=== PATIENT | male | born 1975 | race Caucasian/White ===

== ENCOUNTER 2019-05-05 10:45 | Observation (INO) | payer OTHER, SELFPAY ==
[2019-05-05] VITALS (8 sets, daily range): BP systolic 126–163; BP diastolic 76–107; PULSE 58–74; RESP 16–18; TEMP 36.6–36.9; O2SAT 96–100; BMI 30.5; BMI 32.1
--- NOTE | 2019-05-05 10:47 | NURSING ---
NO OLD EKGS
--- NOTE | 2019-05-05 10:51 | ED.RN ---
PT WITH CP/ARIADNE. PT TO ROOM 7. TRIAGE COMPLETED
--- NOTE | 2019-05-05 10:57 | EKG12_ITS ---
Test Reason : CP Blood Pressure : / mmHG Vent. Rate : 061 BPM Atrial Rate : 061 BPM P-R Int : 166 ms QRS Dur : 102 ms QT Int : 414 ms P-R-T Axes : 005 -05 011 degrees QTc Int : 416 ms Normal sinus rhythm Inferior infarct , age undetermined Abnormal ECG Confirmed by AARON GASPAR, JAN ([id number]), art editor CYNTHIA WEST ([id number]) on 05/08/2019 11:52:04 AM Referred By: Joshua Tenorio Confirmed By:JAN WALKER MD
--- NOTE | 2019-05-05 11:11 | EKG12_ITS ---
Test Reason : CP ADMISSION Blood Pressure : / mmHG Vent. Rate : 060 BPM Atrial Rate : 060 BPM P-R Int : 164 ms QRS Dur : 098 ms QT Int : 416 ms P-R-T Axes : 006 -05 003 degrees QTc Int : 416 ms Normal sinus rhythm Inferior infarct , age undetermined Abnormal ECG No previous ECGs available Confirmed by AARON GASPAR, JAN ([id number]), magazine editor CYNTHIA WEST ([id number]) on 05/06/2019 8:04:55 AM Referred By: Joshua Tenorio Confirmed By:JAN WALKER MD
--- NOTE | 2019-05-05 11:11 | RAD_ITS ---
STUDY: X-RAY CHEST REASON FOR EXAM: Male, 44 years old. Chest tightness TECHNIQUE: Single AP portable view of the chest. COMPARISON: None. FINDINGS: The lungs are clear and expanded. There is no demonstrated pleural abnormality. There is mild cardiac enlargement probable left ventricular hypertrophy. Peripheral to the left cardiac border there is a focus of focal density which may represent prominent cardiac fat pad possible ventricular aneurysm or left lingular infiltrate. Normal mediastinum and maria isabel. Normal visualized pulmonary arteries. Normal visualized aortic arch and descending thoracic aorta. Normal visualized thoracic spine. Normal visualized ribs, clavicles, and shoulders. There is no demonstrated abnormality of the visualized soft tissue structures of the upper abdomen. RAD/Chest 1 View (Portable) IMPRESSION: There is mild cardiac enlargement probable left ventricular hypertrophy. Peripheral to the left cardiac border there is a focus of focal density which may represent prominent cardiac fat pad possible ventricular aneurysm or left lingular infiltrate. Electronically Signed: Cherelle Dobson MD at 11:33 EST Tel , Service support ,
[2019-05-05 11:18] LABS: Absolute Lymphocyte Count 2.59 X10^3/uL (0.83-4.51); Absolute Neutrophil Count 3.1 X10^3/uL (2.0-7.7); Basophil# 0.06 X10^3/uL; Basophil% 0.9 % (0-1); Eosinophil# 0.31 X10^3/uL; Eosinophils% 4.6 % (0-5); Hematocrit 47.1 % (40-54); Hemoglobin 15.8 g/dL (13.0-16.5); Lymphocyte # 2.59 X10^3/ul (4.0); Lymphocyte % 38.5 % (19-41); Mean Corp Hgb Conc 33.5 g/dL (32-36); Mean Corpuscular Volume 89.5 fL (80-94); Mean Platelet Vol. 9.5 fl (6.2-12.0); Monocyte# 0.66 X10^3/uL; Monocyte% 9.8 % (0-10); NRBC Flagged by Analyzer 0 % (0-5); Neutrophil # 3.09 X10^3/uL (2.7-7.7); Neutrophil % 45.9 % (47-70); Platelet Count 216 K/mm3 (150-450); RBC Distribution Width CV 12.8 % (11.6-14.6); RBC Distribution Width SD 42.3 fl (35.1-43.9); Red Blood Count 5.26 M/mm3 (4.6-6.2); White Blood Count 6.7 K/mm3 (4.4-11.0)
--- NOTE | 2019-05-05 11:19 | ED.DCSUM_ITS ---
- ER Visit Summary Date of Service: 05/05/19 Chief Complaint: Short of breath and midsternal chest pain History of Present Illness: The patient is a 44 M past medical history of hypertension. Non-smoker. No substantial family history of cardiac disease nor clotting disorder or blood clots. Patient states that he has had trouble breathing for the last several days. Made worse with exertion or walking steps. 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 Denies any radiation. No nausea. No diaphoresis. Physical Examination: Noise male no acute distress vital signs are stable afebrile. His blood pressure is elevated 163/102. His pulse ox is 90% on room air no signs of hypoxia. HEENT exam unremarkable. Neck nontender no JVD. Lungs clear to auscultation bilaterally. Heart regular rhythm no murmur. Chest wall nontender. Abdomen soft nontender. Normal bowel sounds no peritoneal signs. Patient is moving all 4 extremities. Calves are nontender without edema or cords. Radial pulses are equal and symmetrical. Back nontender. Neurologic exam normal. Test Results: EKG shows a sinus rhythm at a rate of 61 with no signs of acute OH or ischemia. Portable 1 view chest x-ray read by myself and radiologist shows no acute abnormality. CBC normal. Chemistries normal. Troponin normal. Emergency Department Course and Treatment: She with a concerning story for chest discomfort made worse with exertion and exertional dyspnea. He has minimal risk factors and no significant family history. Treated with aspirin and undergo cardiac work-up. Treatment Plan: Repeat exam patient is doing well at 1155. He and I discussed his exertional symptoms it is concerning even know he has limited risk factors and he will be admitted for chest pain of uncertain etiology. Stress testing in the morning. I very spoken to the hospitalist. Disposition: Admission Impression: Acute chest pain uncertain etiology This note was generated with [employer] dictation software. It may contain incorrect words, spelling, and punctuation that were not noted in review of the chart prior to signing ED Disposition - Plan for ED Patient: Referrals: Jonn White MD [STAFF PHYSICIAN] -
[2019-05-05] MEDS: Aspirin 81 MG TAB.CHEW 324 MG PO (11:24)
[2019-05-05 11:41] LABS: Anion Gap 5 (5-15); BUN 15 mg/dL (7-18); BUN/Creat Ratio 16.3 RATIO (10-20); Calcium,Total 9.2 mg/dL (8.5-10.1); Chloride 109 mmol/L (98-107); Creatinine, Serum 0.92 mg/dL (0.70-1.30); EST Glomerular Filtration Rate 95 mL/min (>60); Est Glom Filt Rate - Afr Amer 115 mL/min (>60); Glucose 93 mg/dL (74-106); Potassium 4.1 mmol/L (3.5-5.1); Sodium Level 141 mmol/L (136-145)
--- NOTE | 2019-05-05 12:04 | PCM.HP.STD ---
Problem List (1) Chest pain Status: Acute (2) Essential (primary) hypertension Status: Chronic (3) BMI greater than 30 Status: Chronic History of Present Illness Date of Admission: 05/05/19 Chief Complaint: Chest pain The patient is a 44 year old M with past medical history single for essential hypertension who presented with chest pain. Patient symptoms started 3 days prior to his admission. Pain was described as pressure located in the retrosternal region. He also did develop associated shortness of breath. On the morning of his presentation pain became more intense hence the decision to present to the ED. On further questioning patient denied any association with activity. Denied nausea no vomiting. In the ED his initial set of cardiac enzymes and EKG came back unremarkable he was however admitted for subsequent evaluation in the hospital. Past Medical History Past Medical History (Chronic Problems): Chronic Problems Essential (primary) hypertension (Chronic) BMI greater than 30 (Chronic) Allergies No Known Allergies Allergy (Verified 05/05/19 10:51) Home Medications: Ambulatory Orders Medication Instructions Recorded Lisinopril [Prinivil] 10 mg PO DAILY 05/05/19 Smoking Status: Never smoker - *Family History Paternal History Items: Cancer - Father of colorectal cancer Review of Systems Constitutional: Denies: Anorexia, Chills, Fever, Night Sweats, Weight Change HEENT: Denies: Head Aches, Sinus Congestion, Sinus Drainage Cardiovascular: Reports: Chest Pain. Denies: Orthopnea, Palpitations, Paroxysmal Noc. Dyspnea Respiratory: Reports: Shortness of Breath. Denies: Cough Gastrointestinal: Denies: Abdominal Pain, Hematemesis, Hematochezia, Nausea, Melena, Vomiting Genitourinary: Denies: Dysuria, Frequency, Hematuria, Urgency Musculoskeletal: Denies: Joint Pain, Joint Tenderness Skin: Denies: Rash Neurological: Denies: Focal weakness, Numbness, Tingling Psychiatric: Denies: Homicidal Ideations, Suicidal Ideations Hematologic/ Lymphatic: Denies: Easy Bruising, Easy Bleeding VTE Information - Inpt Only VTE Present on Admission: No VTE Mechan Device Prophylaxis: None VTE Pharm Prophylaxis ordered?: Yes Patient Problems: Active and Suspected Problems Chest pain (Acute) Objective: GENERAL: cooperative HEENT: Atraumatic; EYES; Anicteric, Normal Conjunctiva NECK; supple, normal thyroid, RESPIRATORY: Diminished to auscultation CARDIOVASCULAR: Regular S1 S2, GI: soft, normoactive bowel sounds, : No Renal angle tenderness; EXTREMITIES: No edema, no clubbing, MUSCULOSKELETAL: no muscle waisting NEURO: Awake; no lateralizing signs. SKIN: No Rash PSYCH; Flat affect - Physical Exam Vitals/I&O's: Vital Signs Temp Pulse Resp BP Pulse Ox 97.9 F 69 17 148/100 H 100 05/05/19 10:48 05/05/19 11:59 05/05/19 11:59 05/05/19 11:59 05/05/19 11:59 Oxygen Flow Rate (L/min) 2 Oxygen Delivery Method Nasal Cannula Weight: 88.451 kg Body Mass Index (BMI) 30.5 Laboratory Results 05/05/19 11:05: WBC 6.7, RBC 5.26, Hgb 15.8, Hct 47.1, MCV 89.5, MCH 30.0, MCHC 33.5, RDW Std Deviation 42.3, RDW Coeff of Arturo 12.8, Plt Count 216, MPV 9.5, Immature Gran % (Auto) 0.300, Neut % (Auto) 45.9 L, Lymph % (Auto) 38.5, [place] % (Auto) 9.8, Eos % (Auto) 4.6, Baso % (Auto) 0.9, Absolute Neuts (auto) 3.1, Absolute Lymphs (auto) 2.59, Nucleated RBC % 0 05/05/19 11:05: Sodium 141, Potassium 4.1, Chloride 109 H, Carbon Dioxide 27.0, Anion Gap 5, BUN 15, Creatinine 0.92, Estim Creat Clear Calc 94.80, Est GFR (MDRD) Af Amer 115, Est GFR (MDRD) Non-Af 95, BUN/Creatinine Ratio 16.3, Glucose 93, Calcium 9.2, Troponin I < 0.015 Assessment/Plan All Active Problems Chest pain (Acute) Patient is a 44-year-old gentleman who presented with chest pain 1. Chest Pain ~Placed on a monitored bed; rule out for Myocardial infarction with serial cardiac enzymes and EKGs. If negative, rule out Myocardial Ischemia with nuclear medicine stress test. 2. Hypertension ~ blood pressure not optimal due to noncompliance, patient was advised on the need to be compliant. Home medications continued with dose adjustment as needed 3. Obesity with BMI of 30.5 ?Weight loss advised 4. DVT prophylaxis ~ on enoxaparin Code Visit OBSV E&M: 66506 Initial observation care L3
[2019-05-05] MEDS: Lisinopril 10 MG Tablet PO (17:08)
[2019-05-05] MEDS: Enoxaparin 40 MG/0.4 ML Syringe SC (17:09)
[2019-05-06 03:48] VITALS: PULSE 59
[2019-05-06 05:00] VITALS: BP 114/83; PULSE 74; RESP 16; TEMP 36.6; O2SAT 97
[2019-05-06] MEDS: Lisinopril 10 MG Tablet PO (05:29)
[2019-05-06 06:44] VITALS: PULSE 61
[2019-05-06 07:37] LABS: Absolute Lymphocyte Count 2.05 X10^3/uL (0.83-4.51); Absolute Neutrophil Count 3.1 X10^3/uL (2.0-7.7); Basophil# 0.05 X10^3/uL; Basophil% 0.8 % (0-1); Eosinophils% 3.2 % (0-5); Hematocrit 46.6 % (40-54); Hemoglobin 15.6 g/dL (13.0-16.5); Lymphocyte # 2.05 X10^3/ul (4.0); Lymphocyte % 33.2 % (19-41); Mean Corp Hgb Conc 33.5 g/dL (32-36); Mean Corpuscular Volume 89.6 fL (80-94); Mean Platelet Vol. 9.5 fl (6.2-12.0); Monocyte# 0.75 X10^3/uL; Monocyte% 12.1 % (0-10); NRBC Flagged by Analyzer 0 % (0-5); Neutrophil # 3.11 X10^3/uL (2.7-7.7); Neutrophil % 50.4 % (47-70); Platelet Count 220 K/mm3 (150-450); RBC Distribution Width CV 12.7 % (11.6-14.6); RBC Distribution Width SD 41.6 fl (35.1-43.9); White Blood Count 6.2 K/mm3 (4.4-11.0)
[2019-05-06 08:18] LABS: Anion Gap 6 (5-15); BUN 17 mg/dL (7-18); BUN/Creat Ratio 18.7 RATIO (10-20); Calcium,Total 8.6 mg/dL (8.5-10.1); Chloride 107 mmol/L (98-107); Cholesterol 262 mg/dL (200); Creatinine, Serum 0.91 mg/dL (0.70-1.30); EST Glomerular Filtration Rate 96 mL/min (>60); Est Glom Filt Rate - Afr Amer 116 mL/min (>60); Estimated Creatinine Clearance 95.84 ml/min; Glucose 95 mg/dL (74-106); High Density Lipoprotein 50 mg/dL; Potassium 3.7 mmol/L (3.5-5.1); Sodium Level 139 mmol/L (136-145); Triglycerides 252 mg/dL; Very Low Density Lipoprotein 50 mg/dL (5-40)
[2019-05-06 10:31] VITALS: BP 114/73; PULSE 72; RESP 16; TEMP 36.8; O2SAT 96
--- NOTE | 2019-05-06 13:25 | STRESSREP ---
Stress Test Report Exercise myocardial perfusion stress test. 44-year-old man with a history of hypertension and chest pain. Stress protocol: Resting EKG demonstrates normal sinus rhythm with a rate of 70 bpm. Resting blood pressure is 122/90 mmHg. The patient exercised according to regular Ephraim protocol for total duration of 12 minutes. Patient completed stage IV of the Ephraim protocol. The maximum heart rate attained was 176 bpm which was 100% maximum predicted heart rate the maximum workload was 13.4 metabolic equivalents. At rest there were no ST or T wave changes noted suggest ischemia at peak exercise upsloping ST changes only were noted with no meet the criteria for ischemia. No clinical angina was noted. The patient had minimal chest discomfort which appeared to persist throughout the test there was no worsening or decrease in intensity of the discomfort. The test was terminated due to the target heart rate being achieved. The resting blood pressure was 122/90 mmHg with a peak blood pressure 196/68 mmHg. No clinical angina was noted. Myocardial perfusion protocol. 11.0 mCi of technetium 99m sestamibi was injected at rest. Patient exercised according to regular Ephraim protocol for 12 minutes at peak exercise 35.0 mCi of technetium 99m sestamibi was injected stress images were obtained stress and rest images were reconstructed in comparing the short axis vertical long horizontal long axis. Gated images were also obtained Perfusion SPECT analysis: Review of the stress images demonstrate normal uptake of tracer noted in all areas of the myocardium the resting images similar demonstrate normal uptake of tracer noted in all areas of myocardium. No areas of reversibility are noted to suggest ischemia. Gated SPECT analysis: The gated ejection fraction is noted to be 72%. Conclusion: Normal exercise myocardial perfusion stress test at a high workload. Preserved ejection fraction. Excellent functional capacity.
--- NOTE | 2019-05-06 14:19 | DCINST_ITS ---
- Discharge Diagnoses Current Active Problems: Current Active and Chronic Problems Chest pain (Acute) Essential (primary) hypertension (Chronic) BMI greater than 30 (Chronic) You will use the following diet at home:: No restrictions Your food should be the consistency of: Regular Your liquids should be the consistency of: Regular/Thin Discharge Activity: Return to Normal Activity Weight Bearing Status: Full weight bearing Allergies/Adverse Reactions: Allergies No Known Allergies Allergy (Verified 05/05/19 10:51) Medications to take at Discharge Lisinopril [Prinivil] 10 mg PO DAILY 05/05/19 Primary Care Physician: Jonn White MD [STAFF PHYSICIAN] - Please follow up with your Primary Care Physician in: in 2-3 weeks Test Results: Test results from this visit will be discussed in further detail at your follow- up appointment, if applicable.
--- NOTE | 2019-05-06 14:43 | PHA.DC.MR ---
Pharmacy Service has performed discharge medication reconciliation for this patient. No new medications at time of discharge, medications reviewed are previously reported home medications. The patient's discharge medication list was reviewed for discrepancies and discrepancies were resolved. Home Medications Lisinopril [Prinivil] 10 mg PO DAILY 05/05/19
--- NOTE | 2019-05-09 07:45 | DS.PCM_ITS ---
Discharge Date and Diagnosis Date of Admission: 05/05/19 Date of Discharge: 05/06/19 - Primary Discharge Diagnosis #1 musculoskeletal chest pain #2 hypertension - Secondary Discharge Diagnosis Chronic Problems Essential (primary) hypertension (Chronic) BMI greater than 30 (Chronic) Hospital Course and Treatment Operations: None Procedures: Nuclear stress test Summary of Care Provided: The patient is a 44 year old M who was seen in the emergency room at [facility] with a chief complaint of midsternal chest pain. Work-up in the emergency room revealed his blood pressure to be elevated at 163/102, EKG showed a normal sinus rhythm at a rate of 61 with no evidence of acute ischemic changes, chest x-ray shows no acute abnormality, lab work was completely normal including troponin. Patient was placed in observation status on PCU, cardiac enzymes are cycled and these remain normal, patient underwent an exercise nuclear stress test which was negative for reversible ischemia. On 05/06/2019, patient was seen and examined: On examination he appeared in good health and spirits. Vital signs as documented. Skin warm and dry and without overt rashes. Neck without JVD. Lungs clear. Heart exam notable for regular rhythm, normal sounds and absence of murmurs, rubs or gallops. Abdomen unremarkable and without evidence of organomegaly, masses, or abdominal aortic enlargement. Extremities nonedematous. Neuro: Cranial nerves II through XII are grossly intact, no focal motor deficits were noted, sensation to light touch and pinprick intact. Psych: Patient is alert and oriented x3, he does not appear anxious or depressed On 05/06/2019, patient was seen and examined and felt to be in stable condition for discharge home. - Physical Exam Vitals/I&O's: Vital Signs Temp Pulse Resp BP Pulse Ox 98.3 F 72 16 114/73 96 05/06/19 10:31 05/06/19 10:31 05/06/19 10:31 05/06/19 10:31 05/06/19 10:31 Oxygen Flow Rate (L/min) 2 Oxygen Delivery Method Room Air Weight: 93 kg Body Mass Index (BMI) 32.1 Discharge Activity: Return to Normal Activity Weight Bearing Status: Full weight bearing Home Medications: Medications to take at Discharge Lisinopril [Prinivil] 10 mg PO DAILY 05/05/19 Primary Care Physician: Jonn White MD [STAFF PHYSICIAN] - Please follow up with your Primary Care Physician in: in 2-3 weeks Disposition: Home Minutes spent on discharge:: 30 Patient Condition:: Stable Medical Necessity - Tobacco Use Smoking Status: Never smoker Meaningful Use Info Meaningful Use Diagnoses (Choose all that apply): None applicable Code Visit OBSV E&M: 91754 Observation care discharge
== END 2019-05-06 14:20 | disposition home or self-care (01) ==
LOC: ED 11:26 → PCU 12:27
PROVIDERS: Admitting Provider Internal Medicine; Emergency Provider Emergency Medicine; Family Provider Nurse Practitioner Family; Referring Provider Internal Medicine; Visit Provider Internal Medicine
DX: R07.89 Other chest pain (principal); R06.02 Shortness of breath; I10 Essential (primary) hypertension; Z79.899 Other long term (current) drug therapy; E66.9 Obesity, unspecified; Z68.30 Body mass index [BMI] 30.0-30.9, adult; Z71.3 Dietary counseling and surveillance
CPT/HCPCS: 36415; 71045; 78452; 80048; 80061; 84484; 85025; 93005; 93017; 96372; 99218; 99285; A9500; A4216; G0378

== ENCOUNTER 2022-09-14 10:09 | Day surgery (SDC) | payer OTHER, SELFPAY ==
[2022-09-14 10:29] VITALS: BP 126/63; PULSE 63; RESP 16; TEMP 36.3; O2SAT 100; BMI 30.7
[2022-09-14] MEDS: Lactated Ringers 1,000 ML 15 ML IV (10:42)
--- NOTE | 2022-09-14 11:20 | HP.PCM_ITS ---
History and Physical Date of Admission: 09/14/22 Date of Service:? 08/29/22 MR#: [id number] Acct: [id number] Name:KANDY LIU Rep #: [id number] : 1975 ? ? Provider: Dr. Cleve Nguyen MD Age/Sex:? 47/M ? ? Location: [facility] Status: Signed Intake Vital Signs ? 08/30/2307:28 Height 5 ft 7 in Weight: 207 lb 8 oz BMI 32.5 BP 126/88 H Blood Pressure Location Rt brachial Position Sitting Respiration 17 Pulse 59 L Pulse Source Monitor Temp 97.4 F L Temp Source Temporal Pulse Oximetry (%) 98 Oxygen Delivery Method room air Intake Visit Reasons:?LIPOMA ON BACK Chief Complaint: lump on back Is patient in pain?: No Allergies No Known Allergies Allergy (Verified 08/29/22 08:29) Medications lisinopril 10 mg tablet 10 mg PO DAILY 05/05/19 [History Confirmed 08/29/22] lovastatin 10 mg tablet ea PO 03/04/22 [History Confirmed 08/29/22] PFSH Medical History?(Updated 08/29/22 @ 10:[address] Cleve Nguyen MD) Lipoma of back Surgical History?(Updated 08/29/22 @ 08:27 by Josselin Cruz) History of appendectomy Social History?(Updated 08/29/22 @ 08:28 by Josselin Cruz) Smoking Status:? Never smoker alcohol intake:? current substance use type:? does not use HPI HPI HPI: Patient is a 47-year-old male who presents for probable back lipoma.? He was referred from urgent care.? Mr. Hdz reports he first observed this area in his smear, but then had it identified during a massage shortly thereafter as well.? He believed he had some attributed discomfort, but now reports that he cannot feel it at all. He denies any associated warmth, redness, or drainage from the area.? He denies any history of prior lesion excision, but does question whether this area may be similar to the bumps that he's developed on his head. Mr. Hdz denies any tobacco use, history of skin infections, blood sugar problems, or use of blood thinners. 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 ROS General General: No weight change, appetite, fatigue, colon cancer, breast cancer or weakness HEENT HEENT: No difficulty swallowing, eye injury, eye surgery, swollen glands or hoarseness Endo Endocrine: No thyroid disease, diabetes mellitus, thyroid cancer, Hair loss, heat intolerance or cold intolerance Skin Skin: No rash or changing moles Musc Musculoskeletal: Yes arthritis; No back problems, rheumatoid arthritis, gout or joint pain Cardio Cardiovascular: Yes high blood pressure; No murmur, pacemaker, heart disease, atrial fibrillation, heart attack, heart stent, palpitations, shortness of breat with exertion or chest pain Psych Psychiatric: No depression, anxiety or hearing voices Resp Respiratory: No shortness of breath, No sleep apnea, No cough, No COPD, No asthma, No emphysema and No wheezing Gastro Gastrointestinal: No abdominal pain, No nausea or vomiting, No diarrhea, No constipation, No blood in stool, No acid reflux, No hemorrhoids, No ulcers, No gallbladder problem and No black,tarry stools Norris Hematologic: No blood thinners, No blood disorders, No bleeding, No anemia and No blood clots Neuro Neurologic: No system reviewed and no additional complaints, except as documented, No as per HPI, No abnormal gait, No abnormal hearing, No abnormal movements, No abnormal speech, No behavioral changes, No burning sensations, No confusion, No convulsions, No disequilibrium, No dizziness, No localized weakness, No frequent falls, No headache(s), No lack of coordination, No loss of vision, No memory loss, No numbness, No other visual disturbances, No radicular pain, No restless legs, No sensory deficit, No syncope, No tingling, No tremor(s), No weakness and No other Exam Const General: cooperative, healthy appearing, comfortable and no acute distress Orientation: alert, awake and oriented x3 Skin Other: There is an approximately 4 to 5 cm wide deep soft tissue mass just lateral to the spine of the scapula on the right.? This is nonmobile and nontender with palpation.? There is no overlying redness. Assessment and Plan Assessment and Plan (1) Lipoma of back: ?Status:?Acute ?Comment: This is a 47-year-old male who presents with an incidentally noted right upper back subcutaneous mass/probable lipoma.? He denies any significant symptoms, however wishes to have it removed to mitigate his risk for growth and a bigger procedure down the road.? Given the perceived depth of this lesion, I have recommended we pursue this in the operating room to maximize patient's comfort.? He is accepting of this recommendation and wishes to proceed as described. ?Plan: Excision of right upper back subcutaneous mass under MAC sedation and local anesthetic at first mutually agreeable operative date I have examined the patient and the H&P has been reviewed. There are no clinical changes since date of exam. Procedure and post procedure expectations were reviewed with patient and his significant other. We clarified postprocedure activity restrictions. They offer no further questions. Plan to proceed to the operating room for excision of right upper back subcutaneous mass under anesthesia.
[2022-09-14] MEDS: Cefazolin 2 GM in 0.9% Normal Saline 100 ML IV (11:42)
--- NOTE | 2022-09-14 12:00 | LIP_PTH ---
PATIENT: KANDY NI LOC: [facility] U#:[id number] AGE/SX: 47/M ROOM: RE09/14/[address]: Dr. Cleve Nguyen MD : 1975 BED: DIS: 09/14/2022 SPEC #: [id number] RECD: 09/14/22 14:14 STATUS: BOWEN LUCIO #: [id number] JAZLYN: 09/14/22 12:[address]: Cleve Nguyen DEPT: SURGICAL PATHOLOGY RECD BY: Grace Willis ENTERED: 09/15/22 09:00 SP TYPE: LIPOMA OTHR DR: Lorie Arnold, DEB-Slade Tissues: Soft tissues, NOS Procedures: Surgery Specimen Level III HEADER OPERATION: Excision upper subcutaneous back mass PRE-OP DIAGNOSIS: Lipoma of back TISSUE SUBMITTED: Right upper back lipoma MICROSCOPIC DIAGNOSIS Right upper back lipoma, excision: Mature adipose tissue, consistent with lipoma. SJ:dyan 09/16/2022 MICROSCOPIC DESCRIPTION Slides are reviewed. GROSS DESCRIPTION Received in fixative is one container labeled with the patient's name and designated lipoma right upper back. The specimen consists of an irregular fragment of dent-mitchell tissue measuring 5.0 x 2.7 x 1.6 cm. The specimen is inked and serially sectioned to reveal homogenous yellow cut surfaces. There are no cysts, hemorrhage or myxoid change seen. Metal Moulder'S Assistant sections are submitted in four cassettes. / AM:dyan 09/15/2022 :5 [facility]: [id number]
[2022-09-14] MEDS: Bupivacaine 0.25% 30 ML Vial (12:10)
--- NOTE | 2022-09-14 13:09 | OP.PCM_ITS ---
Report of Operation Date of Procedure: 09/14/22 Pre-Operative Diagnosis: Right upper back subcutaneous mass Post-Operative Diagnosis: Same Surgery/Procedure Performed:: Excision of right upper back subcutaneous mass Description of Surgical Findings:: ? Densely adherent subcutaneous mass extending down to underlying back musculature Surgeon: Cleve Nguyen aircraft instrument mechanic: Deepti Melgar Type of Anesthesia: General/Supplemental Anesthesiologist: Prakash Barney Specimen's removed: Right upper back subcutaneous mass Drains: None Estimated Blood Loss (mL): 35 Description of Procedure: After appropriate identification the preoperative holding area patient was brought to the operating room where he was positioned supine on the operating room table. There he underwent induction with general endotracheal anesthetic per anesthesia. He was then carefully positioned in a left lateral decubitus position using a beanbag. Antibiotics had been completed preoperatively. His posterior neck/back was prepped and draped in usual sterile fashion. A formal timeout followed to confirm both patient and procedure. I then made a transverse incision 5 cm long along the mid aspect of the patient's lipomatous mass. This was carried deeply through the dermal tissue with use of electrocautery to maintain hemostasis as we proceeded. I then visualized the lipomatous subcutaneous mass and used a combination of sharp and blunt dis section to free this mass from the surrounding soft tissue. Deeply the mass was adherent to the underlying rhomboid musculature and I bluntly dissected this mass away from that muscular fascia. In addition to the anesthetic by anesthesia, local anesthetic was used to try to maintain patient's comfort with a total volume of 15 mL bupivacaine plain. Mass was completely extirpated and passed off the operative field for pathology. The final specimen measured 5 cm x 3 cm. The resulting cavity was inspected for hemostasis. Several sites of oozing promptly addressed with electrocautery. The cavity was then closed in layers to plicate the space deeply and approximate the deep dermal tissues to the underlying muscular fascia using 2-0 Vicryl. Lastly a final layer was performed in a subcuticular fashion using 4-0 Monocryl. Steri-Strips and dressing were applied and the patient was awakened from anesthesia and he was transferred to the PACU bed for his ongoing care. Grafts/Implants Used: None Complications None
--- NOTE | 2022-09-14 13:14 | DCINST_ITS ---
Discharge Instructions Diet Discharge Diet: No restrictions Activity Ice area for (Minutes): 20 Lifting Restrictions: No lifting greater than 15 pounds for 3 weeks postop Dressing / Incision Call your doctor if your incision/area has: Continuous Slow Oozing, Sudden Increased Bleeding, Increased Pain/ Swelling, Increased Redness, Foul Smelling Discharge and Swelling at the incision site Call your doctor if you observe: Fever of 101 or Higher Suture Line Care: Avoid Pulling/Pushing Remove Dressing in: 2 days (Please leave Steri-Strips intact until they fall off spontaneously or are taken off at your follow-up visit) Cleanse incision/area with: Soap & Water Follow Up Care Please Follow Up With: Cleve Nguyen MD When: 2 weeks for wound check Test Results: Test results from this visit will be discussed in further detail at your follow- up appointment, if applicable. 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
[2022-09-14 13:24] VITALS: BP 126/63; BP 127/84; PULSE 74; RESP 16; TEMP 36.3; O2SAT 100
[2022-09-14 13:30] VITALS: BP 122/89; BP 126/63; PULSE 72; RESP 16; O2SAT 100
[2022-09-14 13:45] VITALS: BP 120/89; BP 126/63; PULSE 62; RESP 16; O2SAT 100
[2022-09-14 13:57] VITALS: BP 106/84; BP 126/63; PULSE 64; RESP 16; TEMP 36.2; O2SAT 97
[2022-09-14 14:10] VITALS: BP 126/63
== END 2022-09-14 14:25 | disposition home or self-care (01) ==
LOC: SDC 10:10 → AC 10:12
PROVIDERS: PCP Nurse Practitioner Family; Referring Provider Surgery; Visit Provider Surgery
PROC: (CPT 21933; principal; 2022-09-14 11:45)
DX: D17.1 Benign lipomatous neoplasm of skin and subcutaneous tissue of trunk (principal); I10 Essential (primary) hypertension; E78.00 Pure hypercholesterolemia, unspecified; Z79.899 Other long term (current) drug therapy
CPT/HCPCS: 21933; 00300; 88304; J7120; J2405